=== PATIENT | female | born 1970 ===

== ENCOUNTER → 2017-04-15 | Outpatient (CLI) | payer BC | LOC: BMCIMAGING 09:44 | PROVIDERS: ATTEND Family Medicine | DX: M79.645 Pain in left finger(s) (principal) ==

== ENCOUNTER → 2017-09-27 | Outpatient (CLI) | payer BC | LOC: FIMAGING 10:12 | PROVIDERS: ATTEND Obstetrics & Gynecology | DX: O09.522 Supervision of elderly multigravida, second trimester (principal); O09.812 Supervision of pregnancy resulting from assisted reproductive technology, second trimester; Z3A.19 19 weeks gestation of pregnancy; Z85.3 Personal history of malignant neoplasm of breast ==

== ENCOUNTER 2017-10-15 20:34 | Observation (INO) | payer BC | END 2017-10-15 21:35 | disposition home or self-care (01) | LOC: FLD 20:34 | PROVIDERS: ADMIT Obstetrics & Gynecology; ATTEND Obstetrics & Gynecology | DX: R10.9 Unspecified abdominal pain (principal); Z3A.21 21 weeks gestation of pregnancy | CPT/HCPCS: G0378 ==

== ENCOUNTER → 2017-12-24 | Outpatient (CLI) | payer BC | LOC: FIMAGING 09:22 | PROVIDERS: ATTEND Obstetrics & Gynecology | DX: O09.523 Supervision of elderly multigravida, third trimester (principal); O09.813 Supervision of pregnancy resulting from assisted reproductive technology, third trimester; O24.419 Gestational diabetes mellitus in pregnancy, unspecified control; Z3A.31 31 weeks gestation of pregnancy; Z85.3 Personal history of malignant neoplasm of breast ==

== ENCOUNTER → 2018-01-21 | Outpatient (CLI) | payer BC | LOC: FIMAGING 09:35 | PROVIDERS: ATTEND Obstetrics & Gynecology | DX: O09.523 Supervision of elderly multigravida, third trimester (principal); O09.813 Supervision of pregnancy resulting from assisted reproductive technology, third trimester; O09.293 Supervision of pregnancy with other poor reproductive or obstetric history, third trimester; Z3A.35 35 weeks gestation of pregnancy ==

== ENCOUNTER 2018-02-14 06:00 | Inpatient (IN) | payer BC ==
[2018-02-14] MEDS ORDERED: LR 500 ML IV PRN (06:25)
[2018-02-14] MEDS ORDERED: OXYTOCIN/RINGERS LACTATE 500 ML IV SCH (06:25)
[2018-02-14] MEDS ORDERED: LIDOCAINE 1% 300 MG/30 ML SDV SC PRN (06:26)
[2018-02-14] MEDS ORDERED: LR 1,000 ML IV PRN (06:26)
[2018-02-14] MEDS ORDERED: OLIVE OIL 118 ML BTL MISC PRN (06:26)
[2018-02-14] MEDS ORDERED: MISOPROSTOL 200 MCG TAB PR PRN (06:26)
[2018-02-14] MEDS ORDERED: IBUPROFEN 600 MG TAB PO PRN (06:26)
[2018-02-14] MEDS ORDERED: TERBUTALINE SULFATE 1 MG/ML VIAL IV PRN (06:26)
[2018-02-14] MEDS ORDERED: EPSOM SALT 454 GM TP PRN (06:26)
[2018-02-14 06:45] LABS: PLATELET COUNT 156 10^3/uL (150-400)
[2018-02-14] MEDS: CLINDAMYCIN 900 MG/DEXTROSE 50 ML IV SCH ×2 (07:45→15:17)
--- NOTE | 2018-02-14 09:32 | PDGENHP ---
History and Physical - Chief Complaint IOL, A1GDM, AMA - History of Present Illness 47 yo at 39w1d presents this morning for IOL due to A1GDM, AMA. H/o two prior 's with her teenage daughters - those were uncomplicated deliveries but did take many hours per her report. 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 Hypothyroid on Synthroid 25mcg. S/p hysteroscopic myomectomy in the process of trying to get with this baby - ultimately IVF w/ egg donor. otherwise complicated by AMA, partial previa that resolved, and A1GDM. Dx'd at 28 wks and has followed with Corbin Cooley. Has been meticulous with her diet control and monitoring of her BG's and they've been under excellent control - if not leaning towards hypoglycemia much of the time. She is GBS positive with anaphylactic PCN allergy. labs: O Pos Antibody neg RPR neg Rubella IMMUNE Hep B neg HIV neg Varicella IMMUNE GC/C neg GBS POSITIVE History Information - Allergies/Home Medication List Allergies/Adverse Reactions: Penicillins Allergy (Severe, Verified 02/14/18 06:58) ASPHYXIATION Home Medications: None 04/06/09 [Last Taken Unknown] I have personally reviewed and updated: family history, medical history, social history, surgical history - Past Medical History Additional medical history: AMA, H/o DCIS s/p bilat mastectomy and reconstruction, hypothyroid, secondary infertility, H/o UTI and kidney stones ( 2003) - Surgical History Additional surgical history: [facility] [place] myomectomy 2017, bilateral mastectomies and reconstruction, x 2, TAB, wisdom teeth - Family History Additional family history: Strong family h/o breast Ca - Social History Smoking Status: Never smoked Alcohol Use: None Review of Systems Review of Systems: ROS: 10pt was reviewed & negative except for what was stated in HPI & below Physical Exam Physical Exam: FHR 130s mod johnson, accels present, no decels Constitutional: no apparent distress, appears nourished, not in pain Eyes: PERRL Ears, Nose, Mouth, Throat: moist mucous membranes, hearing normal, ears appear normal Respiratory: no respiratory distress Gastrointestinal: soft, non-tender abdomen Skin: warm, normal color Lab Data & Imaging Review 02/14/18 06:35 WBC 7.75 10^3/uL (3.80-9.50) 02/14/18 06:35 RBC 4.56 10^6/uL (4.18-5.33) 02/14/18 06:35 Hgb 13.3 g/dL (12.6-16.3) 02/14/18 06:35 Hct 37.8 % (38.0-47.0) L 02/14/18 06:35 MCV 82.9 fL (81.5-99.8) 02/14/18 06:35 MCH 29.2 pg (27.9-34.1) 02/14/18 06:35 MCHC 35.2 g/dL (32.4-36.7) 02/14/18 06:35 RDW 13.9 % (11.5-15.2) 02/14/18 06:35 Plt Count 156 10^3/uL (150-400) 02/14/18 06:35 MPV 11.3 fL (8.7-11.7) 02/14/18 06:35 Neut % (Auto) 64.9 % (39.3-74.2) 02/14/18 06:35 Lymph % (Auto) 26.5 % (15.0-45.0) 02/14/18 06:35 Evangeline % (Auto) 5.9 % (4.5-13.0) 02/14/18 06:35 Eos % (Auto) 1.0 % (0.6-7.6) 02/14/18 06:35 Baso % (Auto) 0.3 % (0.3-1.7) 02/14/18 06:35 Nucleat RBC Rel Count 0.0 % (0.0-0.2) 02/14/18 06:35 Absolute Neuts (auto) 5.03 10^3/uL (1.70-6.50) 02/14/18 06:35 Absolute Lymphs (auto) 2.05 10^3/uL (1.00-3.00) 02/14/18 06:35 Absolute Monos (auto) 0.46 10^3/uL (0.30-0.80) 11/01/18 06:35 Absolute Eos (auto) 0.08 10^3/uL (0.03-0.40) 02/14/18 06:35 Absolute Basos (auto) 0.02 10^3/uL (0.02-0.10) 02/14/18 06:35 Absolute Nucleated RBC 0.00 10^3/uL (0-0.01) 02/14/18 06:35 Immature Gran % 1.4 % (0.0-1.1) H 02/14/18 06:35 Immature Gran # 0.11 10^3/uL (0.00-0.10) H 02/14/18 06:35 POC Glucose 107 mg/dL (70-100) H 02/14/18 06:57 Patient ABO/Rh O POSITIVE 02/14/18 06:35 Antibody Screen NEGATIVE 02/14/18 06:35 Assessment & Plan Assessment: 47 yo at 39w1d presents for IOL - due to A1GDM, AMA. A1GDM - BG on admission, then no further checks needed. - No plans for PP checks. - 2 hr GTT at 6 wks PP visit. IOL - 3cm on admission - favorable. - Clindamycin for GBS due to anaphylactic PCN rxn. Dosing interval on Clinda is 8 hrs, so will not have adequate treatment until that 2nd dose. - Wait for 4 hrs, then start Pit, AROM PRN to follow. - May want epidural. Hypothyroid - Cont Synthroid Rh pos, Rubella Immune. PAULINO
[2018-02-14] MEDS ORDERED: OLIVE OIL 118 ML BTL ONE (14:27)
[2018-02-14] MEDS ORDERED: AMMONIA AROMATIC 1 EACH AMP IH ONE (14:27)
[2018-02-14] MEDS ORDERED: LIDOCAINE 1% 300 MG/30 ML SDV ONE (14:27)
[2018-02-14] MEDS ORDERED: MISOPROSTOL 200 MCG TAB ONE (14:28)
[2018-02-14] MEDS ORDERED: OXYTOCIN 10 UNIT/ML VIAL ONE (14:28)
[2018-02-14] MEDS ORDERED: TERBUTALINE SULFATE 1 MG/ML VIAL ONE (14:28)
[2018-02-14] MEDS ORDERED: fentaNYL 100 MCG/2 ML INJ ONE (19:14)
[2018-02-14] MEDS ORDERED: PHENYLEPHRINE HCL 100 MCG/ML SYR ONE (19:15)
[2018-02-14] MEDS ORDERED: fentaNYL 2MCG/ML/BUP 0.1% RTU 100 ML BAG EP ONE (19:16)
[2018-02-14] MEDS ORDERED: NALOXONE HCL 0.4 MG/ML INJ IVP PRN (19:42)
[2018-02-14] MEDS ORDERED: ONDANSETRON 4 MG/2 ML VIAL IVP PRN (19:42)
[2018-02-14] MEDS ORDERED: METOCLOPRAMIDE 10 MG/2 ML VIAL IVP PRN (19:42)
--- NOTE | 2018-02-14 19:44 | PREANESOB ---
Obstetric Pre-Anesthesia Info - General Info : 5 Para: 2 HEBERT: 02/20/18 Gestational Age: 39 week(s) and 1 day(s) Anesthesia Allergies/Adverse Reactions: Allergy/AdvReac Type Severity Reaction Status Date / Time Penicillins Allergy Severe ASPHYXIATIO Verified 02/14/18 06:58 N Home Medications: Medication Instructions Recorded None 04/06/09 Visit Medications: Generic Name Dose Route Start Last Admin Trade Name Freq PRN Reason Stop Dose Admin Lactated Ringer's 500 mls @ 500 mls/hr 02/14/18 06:25 Lr IV PRN PRN Maternal Hypotension Oxytocin/Lactated Ringer's 500 mls @ 0 mls/hr 02/14/18 06:25 02/14/18 07:44 Pitocin 30 Units/Lr (Premix) IV 08/13/18 06:24 500 mls CONT ALEK Administration Protocol Per Protocol Lactated Ringer's 1,000 mls @ 0 mls/hr 02/14/18 06:26 02/14/18 07:45 Lr IV 02/15/18 06:25 1,000 mls PRN PRN Administration SEE PROTOCOL CONDITIONS Protocol Per Protocol Clindamycin Phosphate/Dextrose 50 mls @ 100 mls/hr 02/14/18 07:45 02/14/18 15 :17 Cleocin 900 Mg (Premix) IV 03/16/18 07:44 50 mls Q8HRS ALEK Administration Protocol Ibuprofen 600 mg 02/14/18 06:26 Motrin PO ONCE PRN post , pain Lidocaine HCl 300 mg 02/14/18 06:26 Lidocaine Hcl 1% SC 08/13/18 06:25 ONCE PRN episiotomy Magnesium Sulfate 454 gm 02/14/18 06:26 Epsom Salt TP 08/13/18 06:25 Q1H PRN perineal discomfort Misoprostol 800 - 1,000 mcg 02/14/18 06:26 Cytotec [place] ONCE PRN Vaginal Atony/Bleeding [place] Oil 118 ml 02/14/18 06:26 Sweet Oil MISC 08/13/18 06:25 ONCE PRN perineal massage Terbutaline Sulfate 0.25 mg 02/14/18 06:26 Brethine IV 08/13/18 06:25 ONCE PRN Tachysystole Discontinued Medications Generic Name Dose Route Start Last Admin Trade Name Freq PRN Reason Stop Dose Admin Ammonia (Aromatic Spirit) Confirm 02/14/18 14:27 Ammonia Aromatic Administered 02/14/18 14:28 Dose 1 each IH .STK-MED ONE Ephedrine Sulfate Confirm 02/14/18 19:14 Ephedrine Sulfate Administered 02/14/18 19:15 Dose 50 mg .ROUTE .STK-MED ONE Fentanyl Confirm 02/14/18 19:14 Sublimaze Administered 02/14/18 19:15 Dose 100 mcg .ROUTE .STK-MED ONE Fentanyl/Bupivacaine HCl Confirm 02/14/18 19:16 Fentanyl/Bupivacaine/Ns 2 Mcg/Ml 0.1% (Premix Administered 02/14/18 19:17 Dose 100 ml EP .STK-MED ONE Lidocaine HCl Confirm 02/14/18 14:27 Lidocaine Hcl 1% Administered 02/14/18 14:28 Dose 300 mg .ROUTE .STK-MED ONE Misoprostol Confirm 02/14/18 14:28 Cytotec Administered 02/14/18 14:29 Dose 1,000 mcg .ROUTE .STK-MED ONE [place] Oil Confirm 02/14/18 14:27 Sweet Oil Administered 02/14/18 14:28 Dose 118 ml .ROUTE .STK-MED ONE Oxytocin Confirm 02/14/18 14:28 Pitocin Administered 02/14/18 14:29 Dose 40 unit .ROUTE .STK-MED ONE Phenylephrine HCl Confirm 02/14/18 19:15 Neosynephrine Administered 02/14/18 19:16 Dose 1,000 mcg .ROUTE .STK-MED ONE Terbutaline Sulfate Confirm 02/14/18 14:28 Brethine Administered 02/14/18 14:29 Dose 1 mg .ROUTE .STK-MED ONE - Anesthesia History Response to Local Anesthetics: Normal Anesthesia & Operative History: No Prior Problems Family Anesthesia History: Negative - Vital Signs Height/Weight (Nursing): Height 157.48 cm Weight 69.853 kg - Focused Exam Neck exam: FROM Labs: 02/14/18 06:35 Patient ABO/Rh O POSITIVE 02/14/18 06:35 - Plan Consent Signed and on Chart: Yes Patient/Guardian Understands and Agrees to Plan: Yes
[2018-02-14] MEDS ORDERED: LR 500 ML IV SCH (20:00)
[2018-02-14] MEDS ORDERED: fentaNYL 2MCG/ML/BUP 0.1% RTU 100 ML EP SCH (20:00)
[2018-02-14] MEDS: PHENYLEPHRINE HCL 100 MCG/ML SYR IVP PRN (20:41)
[2018-02-15] MEDS ORDERED: HYDROCORTISONE 0.5% CREAM TP PRN (00:27)
[2018-02-15] MEDS ORDERED: oxyCODONE IR 5 MG TAB PO PRN (00:27)
[2018-02-15] MEDS ORDERED: SIMETHICONE 80 MG TAB CHEW PO PRN (00:27)
--- NOTE | 2018-02-15 00:32 | OBDEL ---
Info Type: Vaginal Presentation at Delivery: Vertex L&D Analgesia/Anesthesia Type: Epidural GBS+: Yes Antibiotic Used for + GBS: Clindamycin (2 doses) Intrapartum Medications: Generic Name Dose Route Start Last Admin Trade Name Freq PRN Reason Stop Dose Admin Oxytocin/Lactated Ringer's 500 mls @ 0 mls/hr 02/14/18 06:25 02/14/18 07:44 Pitocin 30 Units/Lr (Premix) IV 08/13/18 06:24 500 mls CONT ALEK Administration Protocol Per Protocol Lactated Ringer's 1,000 mls @ 0 mls/hr 02/14/18 06:26 02/14/18 07:45 Lr IV 02/15/18 06:25 1,000 mls PRN PRN Administration SEE PROTOCOL CONDITIONS Protocol Per Protocol Clindamycin Phosphate/Dextrose 50 mls @ 100 mls/hr 02/14/18 07:45 02/14/18 15 :17 Cleocin 900 Mg (Premix) IV 03/16/18 07:44 50 mls Q8HRS ALEK Administration Protocol Phenylephrine HCl 100 mcg 02/14/18 19:42 02/14/18 20:41 Neosynephrine IVP 08/13/18 19:41 100 mcg .Q2M PRN Administration Hypotension Discontinued Medications Generic Name Dose Route Start Last Admin Trade Name Freq PRN Reason Stop Dose Admin Misoprostol 800 - 1,000 mcg 02/14/18 06:26 02/15/18 00:15 Cytotec [place] 1,000 mcg ONCE PRN Administration Vaginal Atony/Bleeding Indications for Delivery: Diabetes Gestational Well Vaginal Delivery - Delivery Provider Delivery Physician/CNM: Lauro Rosario - Labor and Delivery Onset of Contractions Date: 02/14/18 Onset of Contractions Time: 12:00 Onset of Contractions Type: Augmented Rupture of Membranes Type: Artificial Amniotic Fluid Color: Clear Placenta Delivery Date: 02/14/18 Placenta Delivery Time: 23:48 Total Hours of Labor: 11 Laceration: 2nd Degree Repair: 3-0 Vaginal Sponge Count Correct: Yes Vaginal Needle Count Correct: Yes Vaginal Sweep Performed: Yes EBL: 300 Delivery Events: Nuchal Cord - Medications Labor Augmentation/Induction Methods Used: Pitocin Labor Augmentation/Induction Indication: Gestational Diabetes [place] Data HEBERT: 02/20/18 Gestational Age: 39 week(s) and 2 day(s) Jenkins Delivery Date: 02/14/18 Delivery Time: 23:45 Sex of : Female Score (1 Min): 8 Score (5 Min): 9 Shoulder Dystocia Time Head Delivered: 23:45 Time Body Delivered: 23:45 ICD10 Worksheet Patient Problems: Problems Problem Status Onset AMA (advanced maternal age) multigravida 35+ Acute Gestational diabetes mellitus (GDM) Acute Hypothyroid Acute In vitro fertilization Acute (spontaneous vaginal delivery) Acute - ICD10 Problem Qualifiers (1) Gestational diabetes mellitus (GDM) Qualifiers: Gestational diabetes mellitus control: diet-controlled Trimester: third trimester Qualified Code(s): O24.410 - Gestational diabetes mellitus in , diet controlled (2) AMA (advanced maternal age) multigravida 35+ Qualifiers: Trimester: third trimester Qualified Code(s): O09.523 - Supervision of elderly multigravida, third trimester (3) (spontaneous vaginal delivery) (4) Hypothyroid Qualifiers: Hypothyroidism type: acquired Qualified Code(s): E03.9 - Hypothyroidism, unspecified (5) In vitro fertilization
[2018-02-15] MEDS: PHENYLEPHRINE HCL 100 MCG/ML SYR IVP PRN (00:47)
[2018-02-15] MEDS ORDERED: ACETAMINOPHEN 500 MG TAB PO ONE (01:00)
[2018-02-15] MEDS: ACETAMINOPHEN 325 MG TAB PO SCH ×4 (04:37→20:29)
[2018-02-15] MEDS: IBUPROFEN 600 MG TAB PO SCH ×3 (06:56→19:36)
--- NOTE | 2018-02-15 12:15 | OBPP ---
Progress Note Assessment/Plan: Assessment: 1) s/p with PPH with EBL 600 cc with additional bleeding noted by RN after delivery, s/p cytotec PPD # 0.5 - pt is stable 2) Anemia - pt was symptomatic with HOTN and now improved 3) h/o breast CA, DCIS s/p radical bilateral mastectomies and reconstruction - now GEO for 10+ yrs - bottle feeding 4) Hypothyroidism - stable on meds Plan: Continue routine pp care Monitor for bleeding Will start iron BID Stay well hydrated 02/15/18 12:18 Subjective/ Course: 02/15/18 12:21 Pt seen and examined. Feeling tired, but much better. Minimal discomfort, ice is on her perineum. Pt is OOB, eri regular diet, voiding without difficulty, no flatus yet. Mod lochia. Denies any f/c/n/v/CP or SOB. Bottle feeding baby. Objective: 02/15/18 07:00 Patient ABO/Rh O POSITIVE 02/14/18 06:35 Temp Pulse Resp BP Pulse Ox 36.3 C 73 14 93/59 L 94 02/15/18 08:50 02/15/18 08:50 02/15/18 08:50 02/15/18 08:50 02/15/18 06:30 Uterine Position/Fundal Height: Umbilicus +1 Physical Exam - Physical Exam General Appearance: alert, no apparent distress, mild distress Respiratory: lungs clear, normal breath sounds Cardiac/Chest: regular rate, rhythm Abdomen: normal bowel sounds, non-tender, soft, flatus (+) Extremities: non-tender, normal inspection Skin: normal color, warm/dry Neuro/Psych: alert, normal mood/affect, oriented x 3
[2018-02-15] MEDS: FERROUS SULFATE 140 MG TAB.ER PO SCH (14:17)
--- NOTE | 2018-02-15 16:39 | POSTANESTH ---
Post Anesthetic Evaluation Cardiovascular Status: Normal, Stable Respiratory Status: Normal, Stable Level of Consciousness/Mental Status: Can Participate in Eval Pain Control: Adequate, Prn Tx Ordered Nausea/Vomiting Control: Adequate, Prn Tx Ordered Complications Possibly Related to Anesthesia: None Noted (Pleased with epidural. Denies SHRESTHA/N/V/F/C, paresthesias, weakness. Able to ambulate and tolerate PO. Reports mild site tenderness at needle insertion site, but no induration/erythema/drainage. Reassured that this should resolve over time.)
[2018-02-15] MEDS: CLINDAMYCIN 900 MG/DEXTROSE 50 ML IV SCH ×3 (17:41→22:17)
[2018-02-15] MEDS: DOCUSATE SODIUM 100 MG CAP PO PRN (19:37)
[2018-02-16] MEDS: ACETAMINOPHEN 325 MG TAB PO SCH ×3 (02:45→15:46)
[2018-02-16] MEDS: IBUPROFEN 600 MG TAB PO SCH ×2 (02:45→15:47)
[2018-02-16] MEDS ORDERED: LEVOTHYROXINE 25 MCG TAB PO SCH (06:00)
[2018-02-16 08:59] VITALS: BP 100/77
[2018-02-16] MEDS: CLINDAMYCIN 900 MG/DEXTROSE 50 ML IV SCH (10:02)
[2018-02-16] MEDS: DOCUSATE SODIUM 100 MG CAP PO PRN (10:21)
[2018-02-16] MEDS: FERROUS SULFATE 140 MG TAB.ER PO SCH (10:21)
--- NOTE | 2018-02-16 13:17 | OBPP ---
Progress Note Assessment/Plan: Assessment: 47 y/o PPD #2 s/p doing well. Plan: D/c home today with Ibuprofen and instructions to continue Feosol QD. Follow- up @ [facility] 4 and 6 weeks. Call for fever, heavy vaginal bleeding or other concerns. 02/16/18 13:15 Subjective/ Course: 02/15/18 12:21 Pt seen and examined. Feeling tired, but much better. Minimal discomfort, ice is on her perineum. Pt is OOB, rei regular diet, voiding without difficulty, no flatus yet. Mod lochia. Denies any f/c/n/v/CP or SOB. Bottle feeding baby. 02/16/18 13:13 Pt is doing better today. She reports cramping and perineal pain are controlled with Ibuprofen and Tylenol. She is ambulating and voiding well and has min lochia. Baby is doing well, they are bottle feeding. Objective: 02/15/18 07:00 Patient ABO/Rh O POSITIVE 02/14/18 06:35 Temp Pulse Resp BP Pulse Ox 36.1 C 78 16 100/77 96 02/16/18 08:58 02/16/18 08:58 02/16/18 08:58 02/16/18 08:58 02/16/18 08:58 Uterine Position/Fundal Height: Umbilicus -2 Uterine Tone: Firm Physical Exam - Physical Exam General Appearance: alert, no apparent distress Neck: non-tender, full range of motion, supple Respiratory: chest non-tender, lungs clear, normal breath sounds Cardiac/Chest: regular rate, rhythm Abdomen: normal bowel sounds Extremities: swelling (tr), Tiago's sign (neg)
--- NOTE | 2018-02-16 13:18 | OBGCSDC ---
General Delivery Information - General Info : 5 Para: 3 Abortions: 2 Type: Vaginal L&D Analgesia/Anesthesia Type: Epidural Admission Date: 02/14/18 Labs: Patient ABO/Rh O POSITIVE 02/14/18 06:35 Hct 34.1 % (38.0-47.0) L 02/15/18 07:00 - Hospital Course : 02/15/18 12:21 Pt seen and examined. Feeling tired, but much better. Minimal discomfort, ice is on her perineum. Pt is OOB, eri regular diet, voiding without difficulty, no flatus yet. Mod lochia. Denies any f/c/n/v/CP or SOB. Bottle feeding baby. 02/16/18 13:13 Pt is doing better today. She reports cramping and perineal pain are controlled with Ibuprofen and Tylenol. She is ambulating and voiding well and has min lochia. Baby is doing well, they are bottle feeding. Vaginal - Delivery Provider Delivery Physician/CNM: Lauro Rosario - Diagnosis Labor: Augmented Rupture of Membranes Type: Artificial Amniotic Fluid Color: Clear Laceration: 2nd Degree Repair: 3-0 Delivery Events: Nuchal Cord - Delivery EBL: 300 Data HEBERT: 02/20/18 Gestational Age: 39 week(s) and 3 day(s) Jenkins Delivery Date: 02/14/18 Delivery Time: 23:45 Sex of : Female Weight (gm): 3246 kg Score (1 Min): 8 Score (5 Min): 9 Discharge Information - Discharge Information Instruction/Follow Up: Four Weeks, Six Weeks
== END 2018-02-16 15:15 | disposition home or self-care (01) | DRG 807 ==
LOC: FLD 06:15 → FOB 02-15 02:45
PROVIDERS: ADMIT Obstetrics & Gynecology; ATTEND Obstetrics & Gynecology
DX: O24.419 Gestational diabetes mellitus in pregnancy, unspecified control (principal); Z37.0 Single live birth; Z3A.39 39 weeks gestation of pregnancy; O99.284 Endocrine, nutritional and metabolic diseases complicating childbirth; E03.9 Hypothyroidism, unspecified; Z85.3 Personal history of malignant neoplasm of breast; O99.824 Streptococcus B carrier state complicating childbirth; O70.1 Second degree perineal laceration during delivery; O69.82X0 Labor and delivery complicated by other cord entanglement, without compression, not applicable or unspecified
CPT/HCPCS: J2370; J2590; J3010; J3105